=== PATIENT | male | born 1970 | race Two or more races ===

== ENCOUNTER 2018-01-02 08:04 | Emergency (ER) | payer OTHER ==
[~2018-01-02] VITALS: Ht 165.1 cm; Wt 115.2 kg
[2018-01-02] MEDS ORDERED: MICARDIS40 MG PO (08:41)
[2018-01-02] MEDS ORDERED: PEPCID AC20 MG PO (17:49)
[2018-01-02] MEDS ORDERED: CIPRO500 MG PO (17:49)
[2018-01-02] MEDS ORDERED: METRONIDAZOLE500 MG PO (17:49)
[2018-01-02] MEDS ORDERED: INTESTINEX680 M1 PO (17:49)
== END 2018-01-02 18:15 | disposition home or self-care (01) ==
LOC: ER 08:04
DX: K52.9 Noninfective gastroenteritis and colitis, unspecified (principal)

== ENCOUNTER 2018-01-04 13:00 | Inpatient (IN) | payer OTHER ==
[~2018-01-04] VITALS: Ht 165.1 cm; Wt 114.3 kg
[~2018-01-04 13:00] MED LIST: CIPRO500 MG PO; INTESTINEX680 M1 PO; METRONIDAZOLE500 MG PO; MICARDIS40 MG PO; PEPCID AC20 MG PO
== END 2018-01-09 14:21 | disposition home or self-care (01) | DRG 918 ==
LOC: ER 13:00 → SURH 20:43 → SEC-K 20:43 → MEDI 22:07 → SURH 22:07
PROC: 8E0ZXY6 Isolation (ICD-10-PCS; 2018-01-04)
PROC: 4A12X4Z Monitoring of Cardiac Electrical Activity, External Approach (ICD-10-PCS; principal; 2018-01-05)
DX: T61.01XA Ciguatera fish poisoning, accidental (unintentional), initial encounter (principal); K52.1 Toxic gastroenteritis and colitis; I10 Essential (primary) hypertension; R00.1 Bradycardia, unspecified

== ENCOUNTER 2020-02-08 13:52 | Outpatient (CLI) | payer OTHER | END 2020-02-08 13:56 | disposition home or self-care (01) | LOC: RAD 13:52 | PROVIDERS: ATTEND Specialist | DX: I10 Essential (primary) hypertension (principal); K42.9 Umbilical hernia without obstruction or gangrene ==

== ENCOUNTER → 2020-02-15 08:00 | Outpatient (CLI) | payer OTHER ==
[~2020-02-15 08:00] MED LIST changes: +LASIX40 MG PO
== END | disposition home or self-care (01) ==
LOC: LAB 08:00 → ADM 08:15 → CIR.AMB 02-18 07:00 → EDSTATUS 02-18 08:15
PROVIDERS: ATTEND Specialist
DX: U07.1 COVID-19 (principal); I10 Essential (primary) hypertension; K42.9 Umbilical hernia without obstruction or gangrene; Z01.812 Encounter for preprocedural laboratory examination; Z11.59 Encounter for screening for other viral diseases

== ENCOUNTER 2020-03-24 04:45 | Day surgery (SDC) | payer OTHER | END 2020-03-24 12:00 | disposition home or self-care (01) | LOC: CIR.AMB 04:45 | PROVIDERS: ATTEND Specialist | DX: K42.9 Umbilical hernia without obstruction or gangrene (principal); Z20.828 Contact with and (suspected) exposure to other viral communicable diseases ==

== ENCOUNTER 2020-08-01 08:08 | Outpatient (CLI) | payer OTHER | END 2020-08-01 08:25 | disposition home or self-care (01) | LOC: TOM 08:08 | PROVIDERS: ATTEND Internal Medicine Gastroenterology | DX: K57.30 Diverticulosis of large intestine without perforation or abscess without bleeding (principal); K63.5 Polyp of colon ==

== ENCOUNTER 2020-12-08 15:13 | Outpatient (CLI) | payer OTHER | END 2020-12-08 15:31 | disposition home or self-care (01) | LOC: TOM 15:13 | PROVIDERS: ATTEND Specialist | DX: G93.89 Other specified disorders of brain (principal) ==

== ENCOUNTER 2021-06-19 10:30 | Emergency (ER) | payer OTHER ==
[~2021-06-19] VITALS: Ht 165.1 cm; Wt 127.0 kg
[2021-06-19] MEDS ORDERED: KETO10TA2 PO (13:19)
[2021-06-19] MEDS ORDERED: AMOX-CLAV 875-1 EACH PO (13:19)
== END 2021-06-19 13:30 | disposition home or self-care (01) ==
LOC: ER 10:30
DX: L03.116 Cellulitis of left lower limb (principal); Z91.013 Allergy to seafood

== ENCOUNTER → 2021-06-24 | Emergency (ER) | payer OTHER ==
[~2021-06-24] VITALS: Ht 165.1 cm; Wt 127.0 kg
[~2021-06-24] MED LIST changes: +AMOX-CLAV 875-1 EACH PO; +KETO10TA2 PO
== END | disposition home or self-care (01) ==
LOC: ER 15:58
DX: L03.116 Cellulitis of left lower limb (principal); Z20.822 Contact with and (suspected) exposure to COVID-19

== ENCOUNTER 2021-08-18 10:25 | Outpatient (CLI) | payer OTHER | END 2021-08-18 10:27 | disposition home or self-care (01) | LOC: NUCLEAR 10:25 | PROVIDERS: ATTEND General Practice | DX: R22.43 Localized swelling, mass and lump, lower limb, bilateral (principal); I73.9 Peripheral vascular disease, unspecified; Z91.013 Allergy to seafood ==

== ENCOUNTER 2021-08-21 08:14 | Outpatient (CLI) | payer OTHER | END 2021-08-21 08:15 | disposition home or self-care (01) | LOC: NUCLEAR 08:14 | DX: R22.43 Localized swelling, mass and lump, lower limb, bilateral (principal); I73.9 Peripheral vascular disease, unspecified; Z91.013 Allergy to seafood ==

== ENCOUNTER 2022-06-19 17:28 | Emergency (ER) | payer OTHER ==
[~2022-06-19] VITALS: Ht 165.1 cm; Wt 117.9 kg
[2022-06-19] MEDS ORDERED: MICARDIS HCT 81 EACH PO (17:46)
== END 2022-06-19 21:34 | disposition home or self-care (01) ==
LOC: ER 17:28
DX: K52.9 Noninfective gastroenteritis and colitis, unspecified (principal); Z91.013 Allergy to seafood; I10 Essential (primary) hypertension

== ENCOUNTER 2022-10-29 11:17 | Outpatient (CLI) | payer OTHER ==
[~2022-10-29 11:17] MED LIST changes: +MICARDIS HCT 81 EACH PO
== END 2022-10-29 11:29 | disposition home or self-care (01) ==
LOC: RAD 11:17
PROVIDERS: ATTEND General Practice
DX: R60.9 Edema, unspecified (principal); R06.02 Shortness of breath; R05.9 Cough, unspecified; K76.0 Fatty (change of) liver, not elsewhere classified; R10.9 Unspecified abdominal pain

== ENCOUNTER 2022-10-30 09:28 | Outpatient (CLI) | payer OTHER | END 2022-10-30 09:30 | disposition home or self-care (01) | LOC: LAB 09:28 | DX: R60.9 Edema, unspecified (principal); R06.02 Shortness of breath; R05.9 Cough, unspecified; K76.0 Fatty (change of) liver, not elsewhere classified; R10.9 Unspecified abdominal pain; Z12.11 Encounter for screening for malignant neoplasm of colon; Z12.5 Encounter for screening for malignant neoplasm of prostate; Z11.3 Encounter for screening for infections with a predominantly sexual mode of transmission; Z91.013 Allergy to seafood ==

== ENCOUNTER 2022-11-14 07:23 | Outpatient (CLI) | payer OTHER | END 2022-11-14 07:35 | disposition home or self-care (01) | LOC: TOM 07:23 | PROVIDERS: ATTEND General Practice | DX: K76.0 Fatty (change of) liver, not elsewhere classified (principal); K76.89 Other specified diseases of liver; R19.09 Other intra-abdominal and pelvic swelling, mass and lump; E66.9 Obesity, unspecified ==